=== PATIENT | male | born 1935 | race Caucasian/White ===

== ENCOUNTER → 2017-10-16 | Outpatient (CLI) | payer MEDICARE ==
[~2017-10-16] MED LIST: ASPI-555 PO; CARV25TA PO; FOLI1TAB15 PO; FURO40TA5 PO; HYDR-4153 PO; INSU100V12 SQ; INSU3INS3 SQ; IPRNEB IH; ISOS30TA6 PO; LACT10SO9 PO; METR500T PO; OMEP20TA25 PO; ROPI0.255 PO; TAMS0.4C32 PO; TEMA7.5C19 PO; TERB15CR18 TP; ZIPR20CA23 PO; [UNRECOGNIZED DRUG - CODE] PO
== END | disposition home or self-care (01) ==
LOC: OIH 10:00
PROVIDERS: ATTEND Family Medicine
DX: R05 Cough (principal); Z95.0 Presence of cardiac pacemaker
CPT/HCPCS: 71046

== ENCOUNTER 2018-05-14 10:14 | Inpatient (IN) | payer MEDICARE ==
[~2018-05-14] VITALS: Ht 172.7 cm; Wt 107.9 kg
[~2018-05-14 10:14] MED LIST changes: -ROPI0.255 PO; +ROPI0.257 PO
[2018-05-14 10:41] LABS: BASOPHILS % (AUTO) 0.7 % (0.0-5.0); EOSINOPHILS % (AUTO) 0.7 % (0.0-8.0); HEMATOCRIT 34.2 % (42-54); LYMPHOCYTES % (AUTO) 11.9 % (21.0-51.0); MEAN CORPUSCULAR HEMOGLOBIN 32.3 pg (27.0-33.0); MEAN CORPUSCULAR HGB CONC 33.8 g/dL (32.0-36.0); MEAN CORPUSCULAR VOLUME 95.4 fL (79-99); MONOCYTES % (AUTO) 11.4 % (3.0-13.0); NEUTROPHILS % (AUTO) 75.3 % (40.0-77.0); PLATELET COUNT (AUTO) 149 K/uL (130-400); RED BLOOD CELL COUNT(AUTO) 3.59 MIL/uL (4.50-6.20); WHITE BLOOD COUNT (AUTO) 10.1 K/uL (4.8-10.8)
[2018-05-14 11:02] LABS: ALBUMIN 2.4 g/dL (3.5-5.0); BILIRUBIN,TOTAL 0.8 mg/dL (0.2-1.0); CREATININE 2.2 mg/dL (0.5-1.5); POTASSIUM 5.7 mmol/L (3.5-5.1); TOTAL PROTEIN, SERUM 6.8 g/dL (6.0-8.3)
[2018-05-14 11:51] LABS: ABG BASE EXCESS -0.8 mmol/L (-2.0-3.0); ABG HCO3 26.3 mmol/L (21.0-28.0); ABG OXYGEN SATURATION 87.1 % (95.0-99.0); ABG PCO2 53 mmHg (35-48)
[2018-05-14] MEDS ORDERED: IOHEXOL 350 MG/ML 100ML INFUS..BTL IV ONE (12:25)
[2018-05-14 12:51] LABS: INR 1.09 (0.85-1.15); PARTIAL THROMBOPLASTIN TIME 32.7 SEC (26.3-35.5); PROTHROMBIN TIME 11.4 SEC (9.6-11.6)
[2018-05-14 13:01] LABS: APPEARANCE,URINE CLEAR (CLEAR); BILIRUBIN,URINE NEGATIVE (NEGATIVE); COLOR,URINE YELLOW (YELLOW); GLUCOSE, URINE (UA) NEGATIVE (NEGATIVE); KETONES,URINE NEGATIVE (NEGATIVE); LEUKOCYTE ESTERASE ,URINE NEGATIVE (NEGATIVE); NITRATE,URINE NEGATIVE (NEGATIVE); OCCULT BLOOD,URINE NEGATIVE (NEGATIVE); PROTEIN,URINE 30 (NEGATIVE); UROBILINOGEN,URINE 0.2 mg/dL (0.2-1.0)
[2018-05-14 13:09] LABS: BACTERIA,URINE Rare /HPF (None Seen); RBC,URINE 0-1 /HPF (0-1); WBC,URINE 0-1 /HPF (0-1)
[2018-05-14 13:10] LABS: SQUAMOUS EPITHELIAL CELL,UR Rare /HPF (0-2)
[2018-05-14] MEDS ORDERED: LIDOCAINE HCL 2% VISCOUS 15 ML UDCUP ONE (13:37)
[2018-05-14] MEDS ORDERED: VANCOMYCIN PROTOCOL PER PHARMACY IV SCH (14:45)
[2018-05-14] MEDS: ZOSYN 3.375GM+NS 50ML 50 ML IV SCH ×2 (14:45→23:37)
[2018-05-14 15:10] LABS: APPEARANCE,URINE Clear (CLEAR); BILIRUBIN,URINE Negative (NEGATIVE); COLOR,URINE Yellow (YELLOW); GLUCOSE, URINE (UA) Negative (NEGATIVE); KETONES,URINE Negative (NEGATIVE); LEUKOCYTE ESTERASE ,URINE Trace (NEGATIVE); NITRATE,URINE Negative (NEGATIVE); OCCULT BLOOD,URINE Moderate (NEGATIVE); PROTEIN,URINE POS 1+ (NEGATIVE); UROBILINOGEN,URINE 0.2 mg/dL (0.2-1.0)
[2018-05-14] MEDS ORDERED: SODIUM CHLORIDE 0.9% 1000ML 1,000 ML IV ONE (15:24)
[2018-05-14 16:04] LABS: BACTERIA,URINE Rare /HPF (None Seen); SQUAMOUS EPITHELIAL CELL,UR Few /HPF (0-2)
[2018-05-14 16:05] LABS: HYALINE CASTS, URINE 0-1 /LPF (0-1 /LPF)
[2018-05-14] MEDS ORDERED: SODIUM POLYSTYRENE SULFONATE 15 GM/60 ML ML PO SCH (16:45)
[2018-05-14 17:14] VITALS: BP 152/62
[2018-05-14] MEDS ORDERED: COMPOUND IV REFRIGERATED 1 EACH IVSOLN MISC PRN (17:30)
[2018-05-14] MEDS ORDERED: ACET325C5 PO (17:42)
[2018-05-14] MEDS ORDERED: ACET-2247 PO (17:42)
[2018-05-14] MEDS ORDERED: FURO40TA7 PO (17:42)
[2018-05-14] MEDS ORDERED: MULT1CAP32 PO (17:42)
[2018-05-14] MEDS ORDERED: APIX2.5T PO (17:42)
[2018-05-14] MEDS ORDERED: ATOR10 PO (17:42)
[2018-05-14] MEDS ORDERED: POTA-79 PO (17:42)
[2018-05-14] MEDS ORDERED: OXYB5TAB10 PO (17:42)
[2018-05-14] MEDS ORDERED: ASCO500T10 PO (17:42)
[2018-05-14] MEDS ORDERED: INSLAN SQ (17:42)
[2018-05-14] MEDS ORDERED: ONDA8TAB5 PO (17:42)
[2018-05-14] MEDS ORDERED: ALPR0.25 PO (17:42)
[2018-05-14] MEDS ORDERED: BENZ200C53 PO (17:42)
[2018-05-14] MEDS: VANCOMYCIN 1.5 GM in SODIUM CHLORIDE 0.9% 250 ML IV SCH (18:18)
[2018-05-14 18:22] LABS: CREATININE 2.2 mg/dL (0.5-1.5); POTASSIUM 5.1 mmol/L (3.5-5.1)
[2018-05-14] MEDS: SODIUM CHLORIDE 0.9% 1000ML 1,000 ML IV SCH ×2 (18:22→23:48)
[2018-05-14 19:35] VITALS: BP 125/58
[2018-05-14] MEDS: IPRATROPIUM/ALBUTEROL SULFATE 3 ML SOLUTION IH SCH ×2 (19:47→23:38)
[2018-05-14] MEDS: FUROSEMIDE 10 MG/ML 2ML VIAL IV SCH (21:24)
[2018-05-15] VITALS (7 sets, daily range): BP systolic 95–128; BP diastolic 55–89
[2018-05-15 04:03] LABS: BASOPHILS % (AUTO) 0.6 % (0.0-5.0); EOSINOPHILS % (AUTO) 2.7 % (0.0-8.0); HEMATOCRIT 31.4 % (42-54); LYMPHOCYTES % (AUTO) 11.3 % (21.0-51.0); MEAN CORPUSCULAR HEMOGLOBIN 31.5 pg (27.0-33.0); MEAN CORPUSCULAR VOLUME 95.6 fL (79-99); MONOCYTES % (AUTO) 15.4 % (3.0-13.0); PLATELET COUNT (AUTO) 127 K/uL (130-400); RED BLOOD CELL COUNT(AUTO) 3.29 MIL/uL (4.50-6.20); RED CELL DISTRIBUTION WIDTH 15.2 % (11.0-15.5); WHITE BLOOD COUNT (AUTO) 6.5 K/uL (4.8-10.8)
[2018-05-15 04:10] LABS: ALBUMIN 2.1 g/dL (3.5-5.0); BILIRUBIN,TOTAL 0.6 mg/dL (0.2-1.0); CREATININE 2.3 mg/dL (0.5-1.5); POTASSIUM 4.8 mmol/L (3.5-5.1); TOTAL PROTEIN, SERUM 6.1 g/dL (6.0-8.3)
[2018-05-15] MEDS: ZOSYN 3.375GM+NS 50ML 50 ML IV SCH ×2 (05:41→15:08)
[2018-05-15] MEDS: IPRATROPIUM/ALBUTEROL SULFATE 3 ML SOLUTION IH SCH ×4 (06:26→23:34)
[2018-05-15 08:45] LABS: TROPONIN I 0.18 ng/mL (0.00-0.06)
[2018-05-15] MEDS ORDERED: ENOXAPARIN SODIUM 30 MG/0.3 ML SQ SCH (09:00)
[2018-05-15] MEDS: FUROSEMIDE 10 MG/ML 2ML VIAL IV SCH ×2 (09:57→20:53)
[2018-05-15] MEDS ORDERED: ZIPRASIDONE HCL 20 MG CAPSULE ONE (13:45)
[2018-05-15] MEDS: ZIPRASIDONE HCL 20 MG CAPSULE PO SCH ×2 (13:45→14:53)
[2018-05-15] MEDS ORDERED: ALPRAZOLAM 0.25 MG TABLET ONE (13:50)
[2018-05-15] MEDS: ALPRAZOLAM 0.25 MG TABLET PO SCH (13:53)
[2018-05-15] MEDS: PANTOPRAZOLE SODIUM 40 MG TABLET.DR PO SCH (13:53)
[2018-05-15 16:22] LABS: TROPONIN I 0.2 ng/mL (0.00-0.06)
[2018-05-15] MEDS: INSULIN HUMULIN R 100 UNIT/ML 3ML SQ SCH ×2 (16:30→21:00)
[2018-05-15] MEDS: CARVEDILOL 25 MG TABLET PO SCH (18:00)
[2018-05-15] MEDS: VANCOMYCIN 1.5 GM in SODIUM CHLORIDE 0.9% 250 ML IV SCH (18:00)
[2018-05-15] MEDS: ATORVASTATIN CALCIUM 20 MG TABLET PO SCH (20:53)
[2018-05-15] MEDS: TAMSULOSIN HCL 0.4 MG CAP.ER.24H PO SCH (20:53)
[2018-05-15] MEDS ORDERED: ALPRAZOLAM 0.25 MG TABLET PO SCH (21:00)
[2018-05-15] MEDS ORDERED: ZIPRASIDONE HCL 20 MG CAPSULE PO SCH (21:00)
[2018-05-15] MEDS: TEMAZEPAM 7.5 MG CAPSULE PO SCH (21:00)
[2018-05-16] MEDS: ZOSYN 3.375GM+NS 50ML 50 ML IV SCH ×4 (00:03→21:56)
[2018-05-16 03:49] VITALS: BP 151/57
[2018-05-16 03:54] LABS: MEAN CORPUSCULAR HEMOGLOBIN 32.4 pg (27.0-33.0); MEAN CORPUSCULAR HGB CONC 33.7 g/dL (32.0-36.0); PLATELET COUNT (AUTO) 134 K/uL (130-400); RED BLOOD CELL COUNT(AUTO) 3.33 MIL/uL (4.50-6.20); RED CELL DISTRIBUTION WIDTH 15.3 % (11.0-15.5); WHITE BLOOD COUNT (AUTO) 6.9 K/uL (4.8-10.8)
[2018-05-16 04:10] LABS: ALBUMIN 2.2 g/dL (3.5-5.0); BILIRUBIN,TOTAL 0.6 mg/dL (0.2-1.0); CREATININE 2.7 mg/dL (0.5-1.5); POTASSIUM 4.4 mmol/L (3.5-5.1); TOTAL PROTEIN, SERUM 6.1 g/dL (6.0-8.3)
[2018-05-16] MEDS: SODIUM CHLORIDE 0.9% 1000ML 1,000 ML IV SCH (04:47)
[2018-05-16] MEDS: INSULIN HUMULIN R 100 UNIT/ML 3ML SQ SCH ×4 (06:04→21:42)
[2018-05-16] MEDS: IPRATROPIUM/ALBUTEROL SULFATE 3 ML SOLUTION IH SCH ×4 (06:17→23:29)
[2018-05-16 07:00] VITALS: BP 119/66
[2018-05-16] MEDS: HALOPERIDOL LACTATE 5 MG/ML VIAL IM PRN ×3 (08:19→23:26)
[2018-05-16] MEDS: CARVEDILOL 25 MG TABLET PO SCH ×2 (08:19→17:29)
[2018-05-16] MEDS: OXYBUTYNIN CHLORIDE 5 MG TABLET PO SCH (08:19)
[2018-05-16] MEDS: FUROSEMIDE 10 MG/ML 2ML VIAL IV SCH (08:19)
[2018-05-16] MEDS: PANTOPRAZOLE SODIUM 40 MG TABLET.DR PO SCH (08:19)
[2018-05-16] MEDS: ALPRAZOLAM 0.25 MG TABLET PO SCH ×2 (08:19→20:23)
[2018-05-16 11:26] VITALS: BP 127/79
[2018-05-16 16:04] VITALS: BP 126/87
[2018-05-16] MEDS: VANCOMYCIN 1.5 GM in SODIUM CHLORIDE 0.9% 250 ML IV SCH (17:28)
[2018-05-16 20:04] VITALS: BP 121/69
[2018-05-16] MEDS: TEMAZEPAM 7.5 MG CAPSULE PO SCH (20:23)
[2018-05-16] MEDS: TAMSULOSIN HCL 0.4 MG CAP.ER.24H PO SCH (20:23)
[2018-05-16] MEDS: ATORVASTATIN CALCIUM 20 MG TABLET PO SCH (20:23)
[2018-05-16] MEDS: ZIPRASIDONE HCL 20 MG CAPSULE PO SCH (20:23)
[2018-05-16 23:31] VITALS: BP 143/77
[2018-05-17 02:55] VITALS: BP 129/58
[2018-05-17] MEDS: SODIUM CHLORIDE 0.9% 1000ML 1,000 ML IV SCH ×2 (03:00→23:00)
[2018-05-17 03:52] LABS: HEMATOCRIT 33.4 % (42-54); MEAN CORPUSCULAR HGB CONC 32.4 g/dL (32.0-36.0); MEAN CORPUSCULAR VOLUME 95.8 fL (79-99); NUCLEATED RED BLOOD CELLS 0.1 % (0.0-0.19); PLATELET COUNT (AUTO) 134 K/uL (130-400); RED BLOOD CELL COUNT(AUTO) 3.48 MIL/uL (4.50-6.20); RED CELL DISTRIBUTION WIDTH 15.2 % (11.0-15.5); WHITE BLOOD COUNT (AUTO) 10.6 K/uL (4.8-10.8)
[2018-05-17 04:16] LABS: CREATININE 3.3 mg/dL (0.5-1.5); POTASSIUM 4.2 mmol/L (3.5-5.1)
[2018-05-17] MEDS: ZOSYN 3.375GM+NS 50ML 50 ML IV SCH ×3 (05:26→22:05)
[2018-05-17] MEDS: INSULIN HUMULIN R 100 UNIT/ML 3ML SQ SCH ×4 (05:34→21:00)
[2018-05-17] MEDS: IPRATROPIUM/ALBUTEROL SULFATE 3 ML SOLUTION IH SCH ×4 (07:25→23:51)
[2018-05-17 08:06] VITALS: BP 116/57
[2018-05-17] MEDS: ALPRAZOLAM 0.25 MG TABLET PO SCH ×2 (09:54→21:00)
[2018-05-17] MEDS: OXYBUTYNIN CHLORIDE 5 MG TABLET PO SCH (09:55)
[2018-05-17] MEDS: CARVEDILOL 25 MG TABLET PO SCH ×2 (09:55→18:12)
[2018-05-17] MEDS: PANTOPRAZOLE SODIUM 40 MG TABLET.DR PO SCH (09:55)
[2018-05-17 12:15] VITALS: BP 117/55
[2018-05-17] MEDS ORDERED: HALOPERIDOL LACTATE 5 MG/ML VIAL IV PRN (15:00)
[2018-05-17 16:43] VITALS: BP 122/97
[2018-05-17 18:01] LABS: CREATININE,URINE RANDOM 68 mg/dL (30-135); SODIUM,URINE RANDOM 49 mmol/l (40-220)
[2018-05-17 19:37] VITALS: BP 111/59
[2018-05-17] MEDS: ZIPRASIDONE HCL 20 MG CAPSULE PO SCH (21:57)
[2018-05-17] MEDS: TAMSULOSIN HCL 0.4 MG CAP.ER.24H PO SCH (21:57)
[2018-05-17] MEDS: ATORVASTATIN CALCIUM 20 MG TABLET PO SCH (21:57)
[2018-05-17 23:18] VITALS: BP 115/75
[2018-05-18 03:38] VITALS: BP 114/58
[2018-05-18 04:00] LABS: MEAN CORPUSCULAR HEMOGLOBIN 32.3 pg (27.0-33.0); MEAN CORPUSCULAR HGB CONC 33.4 g/dL (32.0-36.0); MEAN CORPUSCULAR VOLUME 96.7 fL (79-99); NUCLEATED RED BLOOD CELLS 0.1 % (0.0-0.19); PLATELET COUNT (AUTO) 142 K/uL (130-400); RED BLOOD CELL COUNT(AUTO) 3.31 MIL/uL (4.50-6.20); RED CELL DISTRIBUTION WIDTH 15.6 % (11.0-15.5); WHITE BLOOD COUNT (AUTO) 7.3 K/uL (4.8-10.8)
[2018-05-18 04:10] LABS: CREATININE 4.1 mg/dL (0.5-1.5); MAGNESIUM 2.4 mg/dL (1.80-2.40); PHOSPHORUS 6.6 mg/dL (2.5-4.9); POTASSIUM 4.5 mmol/L (3.5-5.1); URIC ACID 7.7 mg/dL (2.6-7.2)
[2018-05-18] MEDS: INSULIN HUMULIN R 100 UNIT/ML 3ML SQ SCH ×4 (05:51→20:51)
[2018-05-18] MEDS: ZOSYN 3.375GM+NS 50ML 50 ML IV SCH ×3 (06:13→20:50)
[2018-05-18 07:00] VITALS: BP 132/66
[2018-05-18] MEDS: IPRATROPIUM/ALBUTEROL SULFATE 3 ML SOLUTION IH SCH ×3 (07:02→20:32)
[2018-05-18] MEDS: OXYBUTYNIN CHLORIDE 5 MG TABLET PO SCH (09:00)
[2018-05-18] MEDS: PANTOPRAZOLE SODIUM 40 MG TABLET.DR PO SCH (09:00)
[2018-05-18] MEDS: FOLIC ACID/VITAMIN B COMP W-C 1 MG CAPSULE PO SCH (09:00)
[2018-05-18] MEDS: ALPRAZOLAM 0.25 MG TABLET PO SCH ×2 (09:00→20:50)
[2018-05-18] MEDS: CARVEDILOL 25 MG TABLET PO SCH ×2 (09:00→17:57)
[2018-05-18 11:00] VITALS: BP 108/40
[2018-05-18] MEDS ORDERED: ALPRAZOLAM 0.25 MG TABLET PO PRN (12:45)
[2018-05-18 16:00] VITALS: BP 106/71
[2018-05-18] MEDS: HYDROMORPHONE 1 MG/1 ML AMP IVP PRN ×2 (16:48→22:25)
[2018-05-18] MEDS: SODIUM CHLORIDE 0.9% 1000ML 1,000 ML IV SCH ×3 (17:57→20:50)
[2018-05-18 20:00] VITALS: BP 121/66
[2018-05-18] MEDS: TAMSULOSIN HCL 0.4 MG CAP.ER.24H PO SCH (20:50)
[2018-05-18] MEDS: ATORVASTATIN CALCIUM 20 MG TABLET PO SCH (20:50)
[2018-05-18] MEDS: ZIPRASIDONE HCL 20 MG CAPSULE PO SCH (22:09)
[2018-05-18 23:30] VITALS: BP 113/66
[2018-05-19] MEDS: IPRATROPIUM/ALBUTEROL SULFATE 3 ML SOLUTION IH SCH ×5 (00:49→23:26)
[2018-05-19] MEDS: HYDROMORPHONE 1 MG/1 ML AMP IVP PRN ×3 (01:37→20:53)
[2018-05-19 04:30] VITALS: BP 121/57
[2018-05-19] MEDS: INSULIN HUMULIN R 100 UNIT/ML 3ML SQ SCH ×4 (06:15→22:18)
[2018-05-19 08:00] VITALS: BP 123/58
[2018-05-19] MEDS: OXYBUTYNIN CHLORIDE 5 MG TABLET PO SCH (09:00)
[2018-05-19] MEDS: FOLIC ACID/VITAMIN B COMP W-C 1 MG CAPSULE PO SCH (09:00)
[2018-05-19] MEDS: ALPRAZOLAM 0.25 MG TABLET PO SCH ×2 (09:00→20:52)
[2018-05-19] MEDS: PANTOPRAZOLE SODIUM 40 MG TABLET.DR PO SCH (09:00)
[2018-05-19] MEDS: CARVEDILOL 25 MG TABLET PO SCH ×2 (09:00→18:00)
[2018-05-19] MEDS: CEFTRIAXONE SODIUM 1 GM IVP SCH (10:18)
[2018-05-19 12:00] VITALS: BP 152/58
[2018-05-19 16:00] VITALS: BP 112/67
[2018-05-19 20:00] VITALS: BP 122/65
[2018-05-19] MEDS: TAMSULOSIN HCL 0.4 MG CAP.ER.24H PO SCH (20:52)
[2018-05-19] MEDS: ATORVASTATIN CALCIUM 20 MG TABLET PO SCH (20:52)
[2018-05-19] MEDS: ZIPRASIDONE HCL 20 MG CAPSULE PO SCH (20:53)
[2018-05-19] MEDS: SODIUM CHLORIDE 0.9% 1000ML 1,000 ML IV SCH (20:57)
[2018-05-19 23:57] VITALS: BP 157/62
[2018-05-20] MEDS: HYDROMORPHONE 1 MG/1 ML AMP IVP PRN (03:07)
[2018-05-20 04:00] VITALS: BP 125/62
[2018-05-20 05:09] LABS: BASOPHILS % (AUTO) 0.6 % (0.0-5.0); EOSINOPHILS % (AUTO) 3.9 % (0.0-8.0); HEMATOCRIT 31.9 % (42-54); LYMPHOCYTES % (AUTO) 12.7 % (21.0-51.0); MEAN CORPUSCULAR HEMOGLOBIN 32.2 pg (27.0-33.0); MEAN CORPUSCULAR HGB CONC 33.9 g/dL (32.0-36.0); MEAN CORPUSCULAR VOLUME 94.9 fL (79-99); MONOCYTES % (AUTO) 10.1 % (3.0-13.0); NEUTROPHILS % (AUTO) 72.7 % (40.0-77.0); NUCLEATED RED BLOOD CELLS 0.1 % (0.0-0.19); PLATELET COUNT (AUTO) 161 K/uL (130-400); RED BLOOD CELL COUNT(AUTO) 3.36 MIL/uL (4.50-6.20); RED CELL DISTRIBUTION WIDTH 15.1 % (11.0-15.5); WHITE BLOOD COUNT (AUTO) 7.1 K/uL (4.8-10.8)
[2018-05-20 05:21] LABS: BILIRUBIN,TOTAL 0.6 mg/dL (0.2-1.0); CREATININE 5.9 mg/dL (0.5-1.5); POTASSIUM 4.4 mmol/L (3.5-5.1)
[2018-05-20] MEDS: INSULIN HUMULIN R 100 UNIT/ML 3ML SQ SCH ×2 (05:59→11:30)
[2018-05-20] MEDS: IPRATROPIUM/ALBUTEROL SULFATE 3 ML SOLUTION IH SCH ×2 (06:50→11:36)
[2018-05-20 07:00] VITALS: BP 109/50
[2018-05-20] MEDS: FOLIC ACID/VITAMIN B COMP W-C 1 MG CAPSULE PO SCH (09:00)
[2018-05-20] MEDS: CARVEDILOL 25 MG TABLET PO SCH (09:00)
[2018-05-20] MEDS: OXYBUTYNIN CHLORIDE 5 MG TABLET PO SCH (09:00)
[2018-05-20] MEDS: PANTOPRAZOLE SODIUM 40 MG TABLET.DR PO SCH (09:00)
[2018-05-20] MEDS: ALPRAZOLAM 0.25 MG TABLET PO SCH (09:00)
[2018-05-20] MEDS: CEFTRIAXONE SODIUM 1 GM IVP SCH (09:42)
[2018-05-20 11:00] VITALS: BP 133/34
== END 2018-05-20 14:23 | disposition expired | DRG 871 ==
LOC: EDH 10:14 → EDHIP 14:26 → 2DH 16:45 → 4CH 05-18 19:01
PROVIDERS: ADMIT Hospitalist; ATTEND Hospitalist
DX: A40.8 Other streptococcal sepsis (principal); J18.9 Pneumonia, unspecified organism; G93.40 Encephalopathy, unspecified; J96.01 Acute respiratory failure with hypoxia; I13.0 Hypertensive heart and chronic kidney disease with heart failure and stage 1 through stage 4 chronic kidney disease, or unspecified chronic kidney disease; N13.30 Unspecified hydronephrosis; J47.0 Bronchiectasis with acute lower respiratory infection; I42.9 Cardiomyopathy, unspecified; L03.115 Cellulitis of right lower limb; L03.116 Cellulitis of left lower limb; N17.9 Acute kidney failure, unspecified; R62.7 Adult failure to thrive; R13.12 Dysphagia, oropharyngeal phase; N40.0 Benign prostatic hyperplasia without lower urinary tract symptoms; D64.9 Anemia, unspecified; E11.21 Type 2 diabetes mellitus with diabetic nephropathy; E11.621 Type 2 diabetes mellitus with foot ulcer; F03.90 Unspecified dementia, unspecified severity, without behavioral disturbance, psychotic disturbance, mood disturbance, and anxiety; H91.90 Unspecified hearing loss, unspecified ear; I25.10 Atherosclerotic heart disease of native coronary artery without angina pectoris; I48.91 Unspecified atrial fibrillation; J32.2 Chronic ethmoidal sinusitis; K21.9 Gastro-esophageal reflux disease without esophagitis; L97.519 Non-pressure chronic ulcer of other part of right foot with unspecified severity; E66.9 Obesity, unspecified; K59.00 Constipation, unspecified; J47.9 Bronchiectasis, uncomplicated; E11.51 Type 2 diabetes mellitus with diabetic peripheral angiopathy without gangrene; I50.9 Heart failure, unspecified; N18.9 Chronic kidney disease, unspecified; R91.1 Solitary pulmonary nodule; E78.5 Hyperlipidemia, unspecified; E87.5 Hyperkalemia; E11.22 Type 2 diabetes mellitus with diabetic chronic kidney disease; R31.9 Hematuria, unspecified; Z82.49 Family history of ischemic heart disease and other diseases of the circulatory system; Z95.810 Presence of automatic (implantable) cardiac defibrillator; Z95.1 Presence of aortocoronary bypass graft; Z80.9 Family history of malignant neoplasm, unspecified; Z86.73 Personal history of transient ischemic attack (TIA), and cerebral infarction without residual deficits; Z83.3 Family history of diabetes mellitus; Z74.01 Bed confinement status; Z68.36 Body mass index [BMI] 36.0-36.9, adult
CPT/HCPCS: 31720; 36415; 36600; 70450; 71045; 71260; 74176; 74177; 80048; 80053; 80339; 81001; 82140; 82550; 82570; 82803; 82948; 83605; 83690; 83735; 83874; 83935; 84100; 84153; 84300; 84484; 84550; 85025; 85027; 85610; 85730; 87040; 87088; 87186; 87804; 92526; 92610; 93005; 93306; 94640; 94664; 94667; 94668; A4218; J0696; J1170; J1630; J1815; J1940; J2543; J3370; J7030; Q9967